=== PATIENT | male | born 1945 | race Caucasian/White ===

== ENCOUNTER 2018-11-30 13:05 | Emergency (ER) | payer MEDICARE, SELFPAY ==
[2018-11-30] VITALS (8 sets, daily range): BP systolic 129–155; BP diastolic 73–86; PULSE 43–56; RESP 12–20; TEMP 35.8; O2SAT 92–98; BMI 31.4
[2018-11-30 13:45] LABS: Alanine Aminotransferase 25 IU/L (21-72); Albumin 4.3 g/dL (3.5-5.0); Albumin Globulin Ratio 1.7 (1.0-2.8); Alkaline Phosphatase 60 U/L (38-126); Aspartate Aminotransferase 28 IU/L (17-59); BUN Creatinine Ratio 27.5 (6-22); Bilirubin Total 0.7 mg/dL (0.2-1.3); Blood Urea Nitrogen 22 mg/dL (9-20); Calcium 9.2 mg/dL (8.4-10.2); Carbon Dioxide 20 mmol/L (22-32); Chloride 107 mmol/L (98-107); Creatine Kinase 95 U/L (55-170); Estimated Glomerular Filt Rate > 60.0 mL/min (>60); Globulin 2.6 g/dL (1.7-4.1); Glucose 141 mg/dL (80-110); HEMOLYSIS 36 (0-50); Sodium 138 mmol/L (137-145); Total Protein 6.9 g/dL (6.3-8.2)
[2018-11-30 13:56] LABS: Troponin I < 0.012 ng/mL (0.01-0.034)
[2018-11-30 14:00] LABS: Add Manual Diff / Slide Review NO; Basophils Absolute Auto 100 /uL (0-100); Basophils Percent Auto 0.8 % (0-2); Eosinophils Absolute Auto 100 /uL (0-450); Eosinophils Percent Auto 2.2 % (2-4); Hematocrit 46.6 % (41-53); Hemoglobin 16.3 g/dL (13.5-17.5); Lymphocytes Absolute Auto 2100 /uL (1100-4500); Lymphocytes Percent Auto 30.9 % (25-40); Mean Corpuscular HGB Conc 35.1 % (30-36); Mean Corpuscular Hemoglobin 30.6 PG (26-34); Mean Corpuscular Volume 87.3 fL (80-100); Monocytes Absolute Auto 600 /uL (0-900); Monocytes Percent Auto 8.3 % (3-14); Neutrophils Absolute Auto 3800 /uL (1500-7000); Neutrophils Percent Auto 57.8 % (50-75); Platelet Count 238 X10^3/uL (150-400); Red Blood Cell Count 5.33 X10^6/uL (4.5-5.9); Red Cell Distribution Width 13.4 % (11.6-14.8); White Blood Cell Count 6.6 X10^3/uL (4.5-11.0)
[2018-11-30] MEDS: SODIUM CHLORIDE 0.9% 1,000 ML 1000 ML IV (14:23)
--- NOTE | 2018-11-30 14:41 | DI.RAD.S_ITS ---
PROCEDURE: XR CHEST 1V INDICATIONS: dizziness TECHNIQUE: One view of the chest was acquired. COMPARISON: None. FINDINGS: Surgical changes and devices: None. Lungs and pleura: An incomplete inspiratory result is noted, causing a crowded appearance to the lung markings. No focal infiltrates are seen. No pneumothorax or significant pleural effusions are seen. Mediastinum: The cardiac contours are within normal limits. The aorta demonstrates calcification and tortuosity. Bones and chest wall: No suspicious bony lesions. Overlying soft tissues appear unremarkable. IMPRESSION: Limited portable chest examination, without a significant cardiopulmonary abnormality identified. Dictated by: Ellis Brennan M.D. on 11/30/2018 at 14:43 Approved by: Ellis Brennan M.D. on 11/30/2018 at 14:44
[2018-11-30 14:55] LABS: Lipase 99 U/L (23-300)
--- NOTE | 2018-11-30 15:04 | ED_ITS ---
HPI - Syncope General Chief Complaint: Dizziness Stated Complaint: Sudden dizzy/nausea/headache Time Seen by Provider: 11/30/18 14:41 Source: patient and family (, daughter) Mode of arrival: wheelchair Limitations: no limitations History of Present Illness HPI narrative: This is a 73-year-old male comes to the emergency department complaint of, sudden onset dizziness and nausea. Patient states that he had a l ittle bit of a headache, he felt sort of sweaty and cold. He states the headache was mild. He felt sort of dizzy like the room was spinning. He states that this happened when he got up from the table and started walking to another table. He states that he sat down put his head down, took about 20 minutes her symptoms resolved. States he feels off balance but states he has been told he is off balance normally. No vision changes, no speech changes, no difficulty with weakness or movement. Patient states that he has not had any chest pain, no shortness of breath, no abdominal pain, no issues with bowel movements, no bright red blood or melanotic stools. No urinary issues. Headache is resolved. Denies any history of MS or stroke. He takes medication for hypertension, depression, Mobic for chronic pain. He denies any surgeries. No new medication changes. Allergic to Echinacea and maybe penicillin. Patient quit smoking 20- 40 years ago. He drinks 2-3 alcoholic drinks daily and no illicit. Primary care is in [place]. He does state that his heart rate runs in the 50s. Review of Systems Review of Systems ROS Unobtainable: All systems reviewed & are unremarkable except as noted in HPI and below Constitutional Denies chills, Denies fever(s), Denies lethargy and Denies weakness Eyes Denies change in vision and Denies loss of vision ENT Ears, Nose, Mouth, and Throat: Reports vertigo, Denies neck pain and Denies other (facial droop) Cardiovascular Denies chest pain, Reports diaphoresis, Denies syncope, Denies edema, Denies irregular heart rhythm, Reports lightheadedness, Denies palpitations, Denies dyspnea, Denies dyspnea on exertion, Denies orthopnea and Reports slow heart rate (normally in 50's.) Respiratory Denies change in phlegm color, Denies chest congestion, Denies cough, Denies dyspnea and Denies dyspnea on exertion Gastrointestinal Gastrointestinal: Denies abdominal pain, Denies melena, Denies change in bowel habits, Denies diarrhea, Reports nausea and Reports vomiting (x1) Genitourinary Denies hematuria, Denies dysuria, Denies flank pain, Denies urinary frequency, Denies urinary incontinence and Denies urinary urgency Musculoskeletal Denies back pain, Denies muscle weakness, Denies neck pain, Denies numbness and Denies tingling Neurologic Reports as per HPI, Denies abnormal speech, Denies confusion, Reports vertigo, Denies syncope, Denies focal weakness, Denies loss of vision, Denies numbness, Denies sensory deficit, Denies tingling and Denies weakness Psychiatric Denies confusion Endocrine Denies palpitations [facility] Medical History (Updated 11/30/18 @ 16:26 by Celia Villalobos DO) Depression (Chronic) Hypertension (Chronic) Social History Smoking Status: Unknown if ever smoked Social History (Updated 11/30/18 @ 15:25 by Celia Villalobos DO) marital status: Smoking Status: Unknown if ever smoked alcohol intake: current substance use type: does not use Exam Narrative Exam Narrative: GEN: well nourished, well appearing male, alert and oriented x 3, patient appears to be in no acute distress. HEENT: Atraumatic, pupils are equal round reactive to light, extraocular movements are intact, no nystagmus, nares are clear, TMs are clear with no fluid, there is no conjunctival pallor. Throat is clear without any exudates, erythema, tonsillar enlargement or uvular deviation, no facial droop HEART: Regular rate and rhythm without murmur, clicks, rubs. No carotid bruits, pulses are equal in upper and lower extremities LUNGS:Lungs clear to auscultation, no wheezes, rales, crackles, chest moves symm etrically ABD:bowel sounds normal, soft, non-tender, no guarding, rebound, rigidity, no masses noted, no hepatosplenomegaly :No CVA tenderness MSCL: Non-tender, no muscle atrophy, muscles strength 5/5 upper and lower extremities, full range of motion, normal gait NEURO:CN 2-12 intact, sensation normal, reflexes 2/4 upper and lower extremities. finger nose finger test normal, heel bain test normal. Initial Vital Signs Initial Vital Signs: Vital Signs Temperature 96.5 F L 11/30/18 13:14 Pulse Rate 49 L 11/30/18 13:14 Respiratory Rate 20 11/30/18 13:14 Blood Pressure 155/80 H 11/30/18 13:14 Pulse Oximetry 96 11/30/18 13:14 Scores NIH Stroke Scale Level of Conciousness: Alert, keenly responsive Ask month/age: Answers both questions correctly. Open/close eyes, close hand: Performs both tasks correctly Best gaze horizontal: Normal Visual fontana: No visual loss Facial palsy: Normal symetrical movement Left arm drift: No drift for full 10 sec Right arm drift: No drift for full 10 sec Left leg drift: No drift for full 10 sec Right leg drift: No drift for full 10 sec Limb ataxia: Absent Sensory on face/arms/legs: Normal, no sensory loss Best language: No aphasia, normal Dysarthria: Normal Extinction or inattention: No abnormality Total NIH Stroke scale score: 0 Course Orders Ordered: ED Orders 11/30/18 13:14 EKG-12 Lead Stat 11/30/18 13:20 Complete Blood Count AUTO DIFF Stat Comprehensive Metabolic Panel Stat Lipase Stat Troponin & CK Cardiac Panel Stat 11/30/18 14:41 XR chest 1V Stat 11/30/18 15:21 CT head/brain wo con Stat 11/30/18 15:30 Urinalysis and Microscopic Stat Urine Culture Stat Discontinued Medications Sodium Chloride (Normal Saline 0.9%) 1,000 mls @ 1,000 mls/hr IV BOLUS ONE Stop: 11/30/18 14:27 Last Infusion: 11/30/18 16:10 Dose: 0 mls/hr Admin: 11/30/18 14:23 Dose: 1,000 mls/hr Vital Signs - 8 hr 11/30/18 13:14 11/30/18 13:30 11/30/18 14:04 Temperature 96.5 F L Pulse Rate 49 L 46 L 46 L Pulse Rate [Orthostatic Lying] Pulse Rate [Orthostatic Sitting] Pulse Rate [Orthostatic Standing] Respiratory Rate 20 16 12 Blood Pressure 155/80 H Blood Pressure [Orthostatic Lying] Blood Pressure [Orthostatic Sitting] Blood Pressure [Orthostatic Standing] Blood Pressure [Right Arm] 147/84 H 133/86 Pulse Oximetry 96 92 97 11/30/18 14:31 11/30/18 14:58 11/30/18 16:00 Temperature Pulse Rate 46 L 48 L Pulse Rate [Orthostatic Lying] 45 L Pulse Rate [Orthostatic Sitting] 43 L Pulse Rate [Orthostatic Standing] 56 L Respiratory Rate 15 12 Blood Pressure Blood Pressure [Orthostatic Lying] 129/73 Blood Pressure [Orthostatic Sitting] 142/77 H Blood Pressure [Orthostatic Standing] 141/76 H Blood Pressure [Right Arm] 133/76 137/74 Pulse Oximetry 96 95 11/30/18 16:30 11/30/18 16:58 Temperature Pulse Rate 50 L 52 L Pulse Rate [Orthostatic Lying] Pulse Rate [Orthostatic Sitting] Pulse Rate [Orthostatic Standing] Respiratory Rate 18 20 Blood Pressure 152/80 H Blood Pressure [Orthostatic Lying] Blood Pressure [Orthostatic Sitting] Blood Pressure [Orthostatic Standing] Blood Pressure [Right Arm] 152/80 H Pulse Oximetry 98 MDM - Syncope Lab Data Attestation: I reviewed the patient's lab results. Result diagrams: 11/30/18 13:20 11/30/18 13:20 Lab Results 11/30/18 11/30/18 11/30/18 Range/Units 13:20 13:20 13:20 WBC 6.6 (4.5-11.0) X10^3/uL RBC 5.33 (4.5-5.9) X10^6/uL Hgb 16.3 (13.5-17.5) g/dL Hct 46.6 (41-53) % MCV 87.3 (80-100) fL MCH 30.6 (26-34) PG MCHC 35.1 (30-36) % RDW 13.4 (11.6-14.8) % Plt Count 238 (150-400) X10^3/uL Neut % (Auto) 57.8 (50-75) % Lymph % (Auto) 30.9 (25-40) % Cannon % (Auto) 8.3 (3-14) % Eos % (Auto) 2.2 (2-4) % Baso % (Auto) 0.8 (0-2) % Neut # (Auto) 3800 (7742-4974) /uL Lymph # (Auto) 2100 (6809-8992) /uL Cannon # (Auto) 600 (0-900) /uL Eos # (Auto) 100 (0-450) /uL Baso # (Auto) 100 (0-100) /uL Sodium 138 (137-145) mmol/L Potassium 4.0 (3.4-5.1) mmol/L Chloride 107 (98-107) mmol/L Carbon Dioxide 20 L (22-32) mmol/L BUN 22 H (9-20) mg/dL Creatinine 0.80 (0.66-1.25) mg/dL Estimated GFR > 60.0 (>60) mL/min BUN/Creatinine Ratio 27.5 H (6-22) Glucose 141 H (80-110) mg/dL Calcium 9.2 (8.4-10.2) mg/dL Total Bilirubin 0.7 (0.2-1.3) mg/dL AST 28 (17-59) IU/L ALT 25 (21-72) IU/L Alkaline Phosphatase 60 (38-126) U/L Total Creatine Kinase 95 (55-170) U/L CK-MB (CK-2) TNP CK-MB (CK-2) Rel Index TNP Troponin I < 0.012 (0.01-0.034) ng/mL Total Protein 6.9 (6.3-8.2) g/dL Albumin 4.3 (3.5-5.0) g/dL Globulin 2.6 (1.7-4.1) g/dL Albumin/Globulin Ratio 1.7 (1.0-2.8) Lipase 99 (23-300) U/L Urine Color Urine Appearance Urine pH (4.5-8.0) Ur Specific [place] (1.000-1.035) Urine Protein (Negative) Urine Glucose (UA) (Negative) g/dL Urine Ketones (NEGATIVE) Urine Occult Blood (Negative) Urine Nitrate (Negative) Urine Bilirubin (NEGATIVE) Urine Urobilinogen (0.2) E.U./dL Ur Leukocyte Esterase (NEGATIVE) Urine RBC (0-5/HPF) Urine WBC (0-5/HPF) Ur Squamous Epith Cells (0-5/HPF) Urine Bacteria (None) Ur Culture Indicated? 11/30/18 Range/Units 15:30 WBC (4.5-11.0) X10^3/uL RBC (4.5-5.9) X10^6/uL Hgb (13.5-17.5) g/dL Hct (41-53) % MCV (80-100) fL MCH (26-34) PG MCHC (30-36) % RDW (11.6-14.8) % Plt Count (150-400) X10^3/uL Neut % (Auto) (50-75) % Lymph % (Auto) (25-40) % Cannon % (Auto) (3-14) % Eos % (Auto) (2-4) % Baso % (Auto) (0-2) % Neut # (Auto) (5508-1185) /uL Lymph # (Auto) (5313-0615) /uL Cannon # (Auto) (0-900) /uL Eos # (Auto) (0-450) /uL Baso # (Auto) (0-100) /uL Sodium (137-145) mmol/L Potassium (3.4-5.1) mmol/L Chloride (98-107) mmol/L Carbon Dioxide (22-32) mmol/L BUN (9-20) mg/dL Creatinine (0.66-1.25) mg/dL Estimated GFR (>60) mL/min BUN/Creatinine Ratio (6-22) Glucose (80-110) mg/dL Calcium (8.4-10.2) mg/dL Total Bilirubin (0.2-1.3) mg/dL AST (17-59) IU/L ALT (21-72) IU/L Alkaline Phosphatase (38-126) U/L Total Creatine Kinase (55-170) U/L CK-MB (CK-2) CK-MB (CK-2) Rel Index Troponin I (0.01-0.034) ng/mL Total Protein (6.3-8.2) g/dL Albumin (3.5-5.0) g/dL Globulin (1.7-4.1) g/dL Albumin/Globulin Ratio (1.0-2.8) Lipase (23-300) U/L Urine Color Yellow Urine Appearance Clear Urine pH 7.5 (4.5-8.0) Ur Specific [place] 1.020 (1.000-1.035) Urine Protein Negative (Negative) Urine Glucose (UA) Negative (Negative) g/dL Urine Ketones Negative (NEGATIVE) Urine Occult Blood Negative (Negative) Urine Nitrate Negative (Negative) Urine Bilirubin Negative (NEGATIVE) Urine Urobilinogen 1.0 (0.2) E.U./dL Ur Leukocyte Esterase Trace H (NEGATIVE) Urine RBC None seen (0-5/HPF) Urine WBC 1-5/hpf (0-5/HPF) Ur Squamous Epith Cells None seen (0-5/HPF) Urine Bacteria None seen (None) Ur Culture Indicated? Specimen cultured Point of Care Testing Glucose POC [address] scan - head: Radiologist's impression: [address] [address] [address] Scan Report Signed Patient: Nikko Martínez [facility]#: [id number] : 5Acct:[id number] Age/Sex: 73 / MDate of Service: 11/30/18 Loc: ED Accession Number: [id number] Procedure: CT head/brain wo con Ordering Provider: Celia Villalobos D.O. PROCEDURE: CT HEAD/BRAIN WO CON INDICATIONS: headache, vertigo, resolved. TECHNIQUE: Noncontrast 4.5 mm thick angled axial sections acquired from the foramen magnum to the vertex, with coronal and sagittal reformats. For radiation dose reduction, the following was used: automated exposure control, adjustment of mA and/or kV according to patient size. COMPARISON: [facility], CR, XR CHEST 1V, 11/30/2018, 14:58. FINDINGS: Image quality: Excellent. CSF spaces: Basal cisterns are patent. No extra-axial fluid collections. The ventricles are symmetric in size and shape. Brain: No intracranial bleeds or masses. There is cerebral volume loss for age, with resultant ventricular and sulcal prominence. There are periventricular and deep white matter chronic small vessel ischemic changes. There is intracranial internal carotid artery atherosclerosis. Skull and face: Calvarium and visualized facial bones appear intact, without suspicious lesions. Sinuses: Focal moderate mucosal thickening is seen involving the left maxillary sinus, with an underlying mucous retention cyst. Bilateral abilio bullosa are seen, right larger than left. Visualized sinuses and mastoids otherwise are clear. IMPRESSION: Normal intracranial study, without mass effect or intracranial hemorrhage. Note is made of age-appropriate brain parenchymal volume loss and chronic small vessel ischemic changes. Focal left maxillary sinus disease incidentally noted. Dictated by: Ellis Brennan M.D. on 11/30/2018 at 14:52 Approved by: Ellis Brenann M.D. on 11/30/2018 at 14:53 Chest x-ray: Radiologist's impression: [address] [address] XRay Report Signed Patient: Nikko Martínez [facility]#: [id number] : 5Acct:[id number] Age/Sex: 73 / MDate of Service: 11/30/18 Loc: ED Accession Number: [id number] Procedure: XR chest 1V Ordering Provider: Celia Villalobos D.O. PROCEDURE: XR CHEST 1V INDICATIONS: dizziness TECHNIQUE: One view of the chest was acquired. COMPARISON: None. FINDINGS: Surgical changes and devices: None. Lungs and pleura: An incomplete inspiratory result is noted, causing a crowded appearance to the lung markings. No focal infiltrates are seen. No pneu mothorax or significant pleural effusions are seen. Mediastinum: The cardiac contours are within normal limits. The aorta demonstrates calcification and tortuosity. Bones and chest wall: No suspicious bony lesions. Overlying soft tissues appear unremarkable. IMPRESSION: Limited portable chest examination, without a significant cardiopulmonary abnormality identified. Dictated by: Ellis Brennan M.D. on 11/30/2018 at 14:43 Approved by: Ellis Brennan M.D. on 11/30/2018 at 14:44 ECG Data Attestation: I personally reviewed and interpreted this ECG as follows: Prior ECG tracings: not available for review Interpretation: Sinus bradycardia first-degree AV block, rate of 45 P are 240 QRS of 118 [address] No [address] elevation or depression appreciated. Incomplete right bundle-branch block. Patient does not have any prior EKGs available for comparison MDM Narrative Medical decision making narrative: Patient comes in with complaint of dizziness but by description sounds more like vertigo. He is bradycardic, typically in the 40s. According to patient he is typically in the 50 range. He has may be an incomplete right bundle branch block on his EKG but no obvious acute changes. I do not have a prior EKG for comparison, head CT is negative chest x-ray does not show acute changes. Lab work does not show any major changes. NIH scale is 0. Patient states he is feeling much better at this time. Discussed with patient do not have a clear source but my suspicion for TIA or stroke is low. Was able to ambulate without any major issues although had a little bit of mild vertigo symptoms still. Patient does have leukocyte esterase pending. Given a referral for Cardiology at family request to but also discussed that following up with primary care or ENT for evaluation would be appropriate as well. His daughter is a nurse practitioner at the local urgent care and feel she can help get him seen. Discharge Plan Departure Patient Disposition: Home Clinical Impression: Dizziness Discharge Date/Time: 11/30/18 16:59 Interventions: ED Discharge Assessment Last Done: 11/30/18 16:58 Instructions: DI for Vertigo Activity Restrictions/Additional Instructions: Follow-up with primary care in the next 2-3 days for recheck. Call for an appointment. You may call [phone] for primary care options in the [facility]. Continue home medications as prescribed. Return to the emergency department for new or worsening symptoms, fevers good 100.4 F, lightheadedness, passing out, new chest pain, shortness of breath, persistent vomiting, new weakness, numbness, difficulty with movement or changes in speech, or other new or concerning symptoms. Referrals: Sheron Trejo MD [Physician] -
--- NOTE | 2018-11-30 15:21 | DI.CT.S_ITS ---
PROCEDURE: CT HEAD/BRAIN WO CON INDICATIONS: headache, vertigo, resolved. TECHNIQUE: Noncontrast 4.5 mm thick angled axial sections acquired from the foramen magnum to the vertex, with coronal and sagittal reformats. For radiation dose reduction, the following was used: automated exposure control, adjustment of mA and/or kV according to patient size. COMPARISON: [facility], CR, XR CHEST 1V, 11/30/2018, 14:58. FINDINGS: Image quality: Excellent. CSF spaces: Basal cisterns are patent. No extra-axial fluid collections. The ventricles are symmetric in size and shape. Brain: No intracranial bleeds or masses. There is cerebral volume loss for age, with resultant ventricular and sulcal prominence. There are periventricular and deep white matter chronic small vessel ischemic changes. There is intracranial internal carotid artery atherosclerosis. Skull and face: Calvarium and visualized facial bones appear intact, without suspicious lesions. Sinuses: Focal moderate mucosal thickening is seen involving the left maxillary sinus, with an underlying mucous retention cyst. Bilateral abilio bullosa are seen, right larger than left. Visualized sinuses and mastoids otherwise are clear. IMPRESSION: Normal intracranial study, without mass effect or intracranial hemorrhage. Note is made of age-appropriate brain parenchymal volume loss and chronic small vessel ischemic changes. Focal left maxillary sinus disease incidentally noted. Dictated by: Ellis Brennan M.D. on 11/30/2018 at 14:52 Approved by: Ellis Brennan M.D. on 11/30/2018 at 14:53
[2018-11-30 15:40] LABS: Bacteria Urine None Seen; RBC Urine None Seen (0-5/HPF)
[2018-11-30 15:42] LABS: Appearance Urine UA CLEAR; Bilirubin Urine UA NEGATIVE (NEGATIVE); Color Urine UA YELLOW; Glucose Urine UA NEGATIVE (Negative); Ketones Urine UA NEGATIVE (NEGATIVE); Leukocyte Esterase Urine UA TRACE (NEGATIVE); Nitrite Urine UA NEGATIVE (Negative); Occult Blood Urine UA NEGATIVE (Negative); Protein Urine UA NEGATIVE (Negative); pH Urine UA 7.5 (4.5-8.0)
[2018-11-30 16:03] LABS: Culture Indicated Urine Specimen Cultured; Squamous Epithelial Cell Urine None Seen (0-5/HPF); WBC Urine 1-5/HPF (0-5/HPF)
== END 2018-11-30 16:59 | disposition home or self-care (01) ==
PROVIDERS: Emergency Provider Emergency Medicine
DX: R42 Dizziness and giddiness (principal); R00.1 Bradycardia, unspecified; R51 Headache
CPT/HCPCS: 36591; 70450; 71045; 80053; 81001; 82550; 82962; 83690; 84484; 85025; 87086; 93005; 93041; 96360; 96361; 99285